=== PATIENT | male | born 1985 | race African-American/Black ===

== ENCOUNTER 2017-11-03 10:54 | Emergency (ER) | payer SELFPAY ==
[2017-11-03] MEDS ORDERED: Proparacaine 0.5% Opth 15 ML BOT ONE (11:35)
== END 2017-11-03 12:15 | disposition home or self-care (01) ==
LOC: ERS 10:54
DX: Z77.098 Contact with and (suspected) exposure to other hazardous, chiefly nonmedicinal, chemicals (principal); K21.9 Gastro-esophageal reflux disease without esophagitis
CPT/HCPCS: 99283

== ENCOUNTER 2018-05-18 22:32 | Emergency (ER) | payer OTHER, SELFPAY | END 2018-05-18 23:46 | disposition home or self-care (01) | LOC: ERS 22:32 | DX: J02.9 Acute pharyngitis, unspecified (principal); E11.9 Type 2 diabetes mellitus without complications; K21.9 Gastro-esophageal reflux disease without esophagitis; Z87.891 Personal history of nicotine dependence; Z79.899 Other long term (current) drug therapy | CPT/HCPCS: 36416; 99283 ==